=== PATIENT | male | born 1950 | race Caucasian/White ===

== ENCOUNTER 2022-09-07 08:34 | Emergency (ER) | payer OTHER, SELFPAY ==
[2022-09-07 08:47] VITALS: BP 181/97; PULSE 53; RESP 18; TEMP 36.1; O2SAT 96; BMI 25.8
[2022-09-07 09:00] VITALS: BP 164/93; PULSE 61; RESP 18; O2SAT 95
--- NOTE | 2022-09-07 09:02 | CRLHL7_ITS ---
For Patients: As a result of the Cures Act, medical imaging exams and procedure reports are released immediately into your electronic medical record. You may view this report before your referring provider. If you have questions, please contact your health care provider. Indication: Injury Technique: An AP view of the pelvis was acquired. AP, lateral and L5-S1 spot films of the lumbosacral spine were also performed Comparison: None Findings: Pelvis: No acute fracture, dislocation or destructive process. Postsurgical changes likely related to herniorrhaphy. Minor degenerative changes Lumbosacral spine: Height of vertebral bodies is normal. No acute fracture, dislocation or destructive process. Moderate degenerative changes diffusely. Atherosclerotic vascular calcification Impression: No visible acute posttraumatic finding involving the lumbar spine or the pelvis Dictated by Francisco Owens MD @ 09/07/2022 9:39:06 AM (Electronically Signed)
[2022-09-07] MEDS: KETOROLAC 30 MG/ML inj 60 MG IM (09:38)
--- NOTE | 2022-09-07 10:03 | ED.GENADULT ---
HPI - General Adult General Chief complaint: Hip Injury/Pain Stated complaint: Fell on RT hip Time Seen by Provider: 09/07/22 08:49 Source: patient Mode of arrival: ambulatory Limitations: no limitations History of Present Illness HPI narrative: 72-year-old male coming in today complaining of right-sided low back pain after falling approximately 5 days ago. States that he slipped getting into his car and hit his right flank area on the car seat when he fell. He states that he thought nothing of it and went about his business. This morning at around 1:00 a.m. he started having right-sided low back pain it has continued to today. He states that it hurts toe walk. The pain does not radiate. Does not go into his groin or abdomen. He denies any difficulty urinating. No diarrhea or constipation. No fevers or chills. No systemic symptoms. Sitting still makes it better. He denies any bowel or bladder incontinence. No saddle anesthesia. No weakness of the lower extremities. Related Data Home Medications Medication Instructions Recorded Confirmed amiodarone 200 mg tablet 200 mg PO QDAY 02/25/22 09/07/22 aspirin 81 mg chewable tablet 81 mg PO QDAY 02/25/22 09/07/22 atorvastatin 40 mg tablet 40 mg PO QPM 02/25/22 09/07/22 lisinopril 10 mg tablet 10 mg PO QDAY 02/25/22 metoprolol tartrate 25 mg tablet 25 mg PO BID 02/25/22 09/07/22 lisinopril 5 mg tablet 5 mg PO DAILY 09/07/22 09/07/22 Allergies Allergy/AdvReac Type Severity Reaction Status Date / Time No Known Drug Allergies Allergy Verified 09/07/22 08:52 Review of Systems Status of ROS: Reports: 10 or more systems reviewed and unremarkable except as noted in History and below [facility] Social History Smoking Status: Never smoker Do you use any of these nicotine containing products: None How often do you have a drink containing alcohol: monthly or less How often do you have six or more drinks on one occasion: Never AUDIT-C Alcohol total score: 1 Non-prescribed substance use: denies use Exam Narrative: Exam Narrative: Well-nourished well-developed patient in no acute distress. Alert and oriented. Answers questions appropriately. Mood and affect are appropriate. Thoughts are goal oriented and rational. No tangential or magical thinking noted. Patient speaks in full sentences without needing to catch their breath. HEENT: Normocephalic atraumatic. Pupils are equally round reactive to light. Extraocular muscles are intact. Conjunctivae are moist without any icterus noted. Moist mucous membranes. Cardiovascular: Heart is regular rate and rhythm. Lungs: Clear to auscultation bilaterally. Patient takes deep breaths without any discomfort. Abdomen: Soft and nontender nondistended with normal bowel sounds. Extremities: Bilateral lower extremities are without edema. Skin: Well perfused without any obvious rashes. Back: Normal appearance. No ecchymosis or erythema noted. He has no CVA tenderness. He has discomfort to palpation of the right-sided paraspinal musculature of the lumbar spine. He has no pain over the lumbar spine itself. He has no pain over the coccyx. Appears to have some discomfort right over the sacroiliac joint as well. Const: Vital Signs, click to edit/add: Vital Signs - 24 hr 09/07/22 08:47 09/07/22 09:00 Temperature 97.0 F L Pulse Rate [Pulse Oximeter] 53 L 61 Respiratory Rate 18 18 Blood Pressure [Le ft Upper Arm] 181/97 H 164/93 H Pulse Oximetry 96 95 Oxygen Delivery Me thod Room Air Room Air Course Course Hospital Course: Given his history of minor trauma I did x-ray the lumbar spine and pelvis, read by me, both were unremarkable. He did receive a dose of Toradol while he was here, which he stated did help a little bit. Vital Signs Vital signs: Initial Vital Signs Temperature 97.0 F L 09/07/22 08:47 Temperature Source Temporal Artery Scan 09/07/22 08:47 Pulse Rate 53 L 09/07/22 08:47 Respiratory Rate 18 09/07/22 08:47 Blood Pressure 181/97 H 09/07/22 08:47 Blood Pressure Mean 125 09/07/22 08:47 Blood Pressure Position Semi-Fowlers 09/07/22 08:47 Pulse Oximetry 96 09/07/22 08:47 Oxygen Delivery Method 09/07/22 08:47 Vital Signs Temperature 97.0 F L 09/07/22 08:47 Pulse Rate 53 L 09/07/22 08:47 Respiratory Rate 18 09/07/22 08:47 Blood Pressure 181/97 H 09/07/22 08:47 Pulse Oximetry 96 09/07/22 08:47 Oxygen Delivery Method 09/07/22 08:47 Temperature 97.0 F L 09/07/22 08:47 Pulse Rate 61 09/07/22 09:00 Respiratory Rate 18 09/07/22 09:00 Blood Pressure 164/93 H 09/07/22 09:00 Pulse Oximetry 95 09/07/22 09:00 Oxygen Delivery Method 09/07/22 09:00 Medical Decision Making MDM Narrative Medical decision making narrative: 72-year-old male with low back pain. Differential diagnosis includes renal stones, contusion, muscle spasm. At this time we discussed treating with [id number] NSAIDs or Tylenol, heat to the muscle. We discussed reasons to return including worsening symptoms or symptoms that are changing. We certainly discussed returning if he develops any systemic symptoms. Imaging Data X-ray pelvis: Attestation: I have reviewed the pertinent imaging results. Radiologist's impression: An AP view of the pelvis was acquired. AP, lateral and L5-S1 spot films of the lumbosacral spine were also performed Comparison: None Findings: Pelvis: No acute fracture, dislocation or destructive process. Postsurgical changes likely related to herniorrhaphy. Minor degenerative changes Lumbosacral spine: Height of vertebral bodies is normal. No acute fracture, dislocation or destructive process. Moderate degenerative changes diffusely. Atherosclerotic vascular calcification Impression: No visible acute posttraumatic finding involving the lumbar spine or the pelvis Discharge Plan Discharge Clinical Impression: Low back pain Patient Disposition: Home, Self-Care Condition: Stable Additional Instructions: X-rays of the lower back and pelvis were done today, both were normal. Okay to use heat or ice to the lower back, whichever one feels better. Okay to use Tylenol as needed for discomfort. Return to the ER if you develop worsening symptoms. Prescriptions: No Action lisinopril 5 mg tablet 5 mg PO DAILY atorvastatin 40 mg tablet 40 mg PO QPM metoprolol tartrate 25 mg tablet 25 mg PO BID lisinopril 10 mg tablet 10 mg PO QDAY aspirin 81 mg tablet,chewable 81 mg PO QDAY amiodarone 200 mg tablet 200 mg PO QDAY Follow Up/Referrals: Az Lynne MD [Primary Care Provider] - Stand Alone Forms: [employer] Info Instructions
== END 2022-09-07 10:20 | disposition home or self-care (01) ==
PROVIDERS: Emergency Provider Family Medicine; PCP Family Medicine
DX: M54.50 Low back pain, unspecified (principal)
CPT/HCPCS: 72100; 72170; 96372; 99284; J1885

== ENCOUNTER 2023-06-13 10:18 | Outpatient (CLI) | payer OTHER, SELFPAY | END 2023-06-13 10:19 | disposition home or self-care (01) | LOC: NFLDREF 10:19 | PROVIDERS: PCP Family Medicine; Visit Provider Family Medicine | DX: I10 Essential (primary) hypertension (principal) | CPT/HCPCS: 80048 ==

== ENCOUNTER 2024-08-31 13:55 | Outpatient (CLI) | payer MEDICARE, SELFPAY ==
--- NOTE | 2024-09-06 13:10 | PC.SOCIAL ---
Social work consult: tray worker attempted to call pt's daughter, Debbie #[phone], today to follow-up on the social work consult that was placed on Friday09/03/[address] Lynne from the [facility]. Pt's daughter did not answer, so this worker left a generic message on her voicemail with this worker's call back information. Social work to follow-up as needed.
== END 2024-08-31 13:56 | disposition home or self-care (01) ==
PROVIDERS: PCP Family Medicine; Visit Provider Family Medicine
DX: I10 Essential (primary) hypertension (principal); E78.2 Mixed hyperlipidemia; I48.19 Other persistent atrial fibrillation
CPT/HCPCS: 80048; 80061; 84460

== ENCOUNTER 2024-10-14 12:52 | Outpatient (CLI) | payer MEDICARE, SELFPAY | END 2024-10-14 12:53 | disposition home or self-care (01) | LOC: RAD 12:54 | PROVIDERS: PCP Family Medicine; Visit Provider Internal Medicine Cardiovascular Disease | DX: I34.0 Nonrheumatic mitral (valve) insufficiency (principal); I51.7 Cardiomegaly; I48.19 Other persistent atrial fibrillation; I10 Essential (primary) hypertension | CPT/HCPCS: 93306 ==